=== PATIENT | male | born 2000 | race Caucasian/White ===

== ENCOUNTER 2020-01-28 18:48 | Emergency (ER) | payer BC ==
[~2020-01-28] VITALS: Ht 188 cm; Wt 84.1 kg
[2020-01-28 19:07] VITALS: BP 144/81
== END 2020-01-28 22:07 | disposition home or self-care (01) ==
LOC: ER 18:49
DX: S62.324A Displaced fracture of shaft of fourth metacarpal bone, right hand, initial encounter for closed fracture (principal); W22.8XXA Striking against or struck by other objects, initial encounter; Y93.67 Activity, basketball; Y92.89 Other specified places as the place of occurrence of the external cause; Y99.8 Other external cause status
CPT/HCPCS: 29125; 73130; 99283